=== PATIENT | female | born 1990 | race Caucasian/White ===

== ENCOUNTER 2016-09-30 11:47 | Emergency (ER) | payer OTHER ==
[~2016-09-30] VITALS: Ht 152.4 cm; Wt 71.5 kg
[~2016-09-30 11:47] MED LIST: ACET1TAB40 PO; AZIT250T94 PO; IBUP-1542 PO
[2016-09-30 11:50] VITALS: Ht 152.4 cm; Wt 71.5 kg
[2016-09-30] MEDS ORDERED: KETOROLAC 60 MG INJ IM STA (12:18)
--- NOTE | 2016-09-30 15:21 | RADRPT ---
PROCEDURE: Left breast ultrasound. CLINICAL INDICATION: Left breast pain and tenderness TECHNIQUE: Left whole breast, 4 quadrant and retroareolar, and axillary sonography was performed. COMPARISON: None FINDINGS: No solid or suspicious masses. No areas of architectural distortion. No malignant adenopathy. No dominant cysts are present. Left breast subpectoral implant is present IMPRESSION: No sonographic abnormality identified to correspond to left breast pain. BIRADS 1: Negative examination. . RPTAT: EE .Keyona Weathers MD, Date Time Electronically viewed and signed by .Keyona Weathers MD, on 09/30/2016 15:20 .M/
[2016-09-30] MEDS ORDERED: ULT50 PO (15:31)
--- NOTE | 2016-09-30 15:52 | ERD ---
ER Documentation Chief Complaint Date/Time DATE: 09/30/16 TIME: 15:36 Chief Complaint LEFT BREAST PAIN HPI 25-year-old female presents the ED complaining of left breast pain that started 4 days ago. States that she saw her [facility] ET[facility]ER at [facility] and was sent here to the ED due to her pain. States that she has breast implants from 5 years ago. Describes the pain as sharp and rates it a 10 out of 10. States that she took Motrin without relief and Vicodin provided slight pain relief. Denies any chest pain, shortness of breath, wheezing, abdominal pain, nausea, fever, vomiting. Also reports left ear pain. States that she has recently had a URI but it has resolved. States her last menses was on September 12, 2016. Denies any dysuria, urgency, frequency, flank pain. States that she is not . Denies that she is breast-feeding. ROS All systems reviewed and are negative except as per history of present illness. Medications Home Meds Active Scripts Tramadol HCl (Tramadol HCl) 50 Mg Tablet, 50 MG PO Q4 Y for PAIN, #20 TAB Prov:MARIELA SMITH PA-C 09/30/16 Azithromycin* (Zithromax*) 250 Mg Tablet, 250 MG PO .ZPACK DIRECTED, #6 TAB TAKE 500 MG (2 TABS) THE FIRST DAY THEN 250 MG (1 TAB) DAYS 2-5 Prov:JAZMIN STORY MD 11/19/15 Ibuprofen* (Motrin*) 600 Mg Tab, 600 MG PO Q6, #16 TAB Prov:JAZMIN STORY MD 11/19/15 Acetaminophen-Codeine* (Acetaminophen-Cod #3*) 300-30 Mg Tab, 1 TAB PO Q4H Y for PAIN, #12 TAB Prov:JAZMIN STORY MD 11/19/15 Allergies Allergies: Coded Allergies: No Known Allergy (Verified Allergy, Unknown, 01/11/07) PMhx/Soc History of Surgery: Yes (PLASTIC SURGERY) Anesthesia Reaction: No Hx Neurological Disorder: No Hx Respiratory Disorders: No Hx Cardiac Disorders: No Hx Psychiatric Problems: No Hx Miscellaneous Medical Probl: No Hx Alcohol Use: No Hx Substance Use: No Hx Tobacco Use: No Physical Exam Vitals Vital Signs Date Time Temp Pulse Resp B/P Pulse Ox O2 Delivery O2 Flow Rate FiO2 09/30/16 11:50 98.0 85 19 114/77 100 Physical Exam Const: [id number], well-nourished. In no acute distress. Head: Atraumatic, normocephalic Eyes: Normal Conjunctiva without injection. No purulent discharge. PERRL. EOMI ENT: Normal external ear. Ear canal without erythema. Tympanic membrane pearly newell without effusion or bulging. No tenderness to palpation of the tragus or mastoid. Nasal canal clear with normal turbinates. Moist oropharynx without tonsillar exudates. Non-erythematous pharynx. Uvula midline. No drooling. No trismus. Neck: Full range of motion. No meningismus. No cervical lymphadenopathy. Resp: Clear to auscultation bilaterally. No wheezing, rhonchi, rales, or crackles. No accessory muscle use. No retractions. Cardio: Regular rate and rhythm. No murmurs, rubs or gallops. Breast: Tenderness to palpation of the left breast. No erythema, edema, purulent discharge, fluctuation, induration, warmth to touch. No areolar discharge. Abd: Soft, non tender, non distended. Normal bowel sounds. No palpable masses. No rebound tenderness. No guarding. Skin: No petechiae or rashes Back: No midline tenderness. No CVA tenderness. Ext: No cyanosis, or edema. Neur: Awake and alert. Psych: Normal Mood and Affect Results 24 hrs Current Medications Medications (Trade) Dose Ordered Sig/Sheri Route PRN Reason Start Time Stop Time Status Last Admin Dose Admin Ketorolac Tromethamine (Toradol) 60 mg ONCE STAT IM 09/30/16 12:18 09/30/16 12:20 DC 09/30/16 12:51 Procedures/MDM 38-year-old female with no significant past medical history presents the ED complaining of left breast pain that started 4 days ago. Patient was sent here by her DOT ETCHER for further evaluation of her left breast pain. Patient is afebrile and nontoxic-appearing. At this time and ultrasound of the breasts were ordered to further evaluate patient. Clinically, patient does not appear to have mastitis as there is no warmth to touch, erythema, edema. No purulent discharge or fluctuance noted. There is low suspicion for abscess, deep space infection, sepsis, or other emergent conditions. Differential diagnosis considered include but is not limited to mastitis, fibroadenoma, cyst, fibrocystic changes, galactocele, fat necrosis, malignancy. Low suspicion for sepsis, cellulitis, or other emergent conditions. Patient does not have tenderness to palpation of tragus or mastoid. Low suspicion for otitis media, otitis externa or mastoiditis. Patient's physical exam include lungs which were clear to auscultation and a normal pulse oximetry. Patient is speaking in full sentences. There is a low suspicion for pneumonia, epiglottitis, croup, viral/strep pharyngitis, sinusitis, peritonsillar abscess, retropharyngeal abscess, meningitis, sepsis, acute abdomen or other emergent conditions. Discharge medications: Tramadol Follow up with primary care physician in 1-2 days. Instructed patient to return to the ED sooner for any worsening symptoms. Patient's questions were answered. Patient understood and agreed with discharge plan. Patient discharged stable. Departure Diagnosis: Primary Impression: Breast pain, left Condition: Stable Patient Instructions: Breast Anatomy, Mammography with Breast Implants, Care After Breast Implants Referrals: [facility] YOU HAVE RECEIVED A MEDICAL SCREENING EXAM AND THE RESULTS INDICATE THAT YOU DO NOT HAVE A CONDITION THAT REQUIRES URGENT TREATMENT IN THE EMERGENCY DEPARTMENT. FURTHER EVALUATION AND TREATMENT OF YOUR CONDITION CAN WAIT UNTIL YOU ARE SEEN IN YOUR DOCTORS OFFICE WITHIN THE NEXT 1-2 DAYS. IT IS YOUR RESPONSIBILITY TO MAKE AN APPOINTMENT FOR FOLOW-UP CARE. IF YOU HAVE A PRIMARY DOCTOR --you should call your primary doctor and schedule an appointment IF YOU DO NOT HAVE A PRIMARY DOCTOR YOU CAN CALL OUR PHYSICIAN REFERRAL HOTLINE AT IF YOU CAN NOT AFFORD TO SEE A PHYSICIAN YOU CAN CHOSE FROM THE FOLLOWING [facility] [address] [facility] [address] [facility] [facility] [address] [facility] [address] [facility] [address] [facility]. [facility]. [address] [facility]. [facility] YOU HAVE RECEIVED A MEDICAL SCREENING EXAM AND THE RESULTS INDICATE THAT YOU DO NOT HAVE A CONDITION THAT REQUIRES URGENT TREATMENT IN THE EMERGENCY DEPARTMENT. FURTHER EVALUATION AND TREATMENT OF YOUR CONDITION CAN WAIT UNTIL YOU ARE SEEN IN YOUR DOCTORS OFFICE WITHIN THE NEXT 1-2 DAYS. IT IS YOUR RESPONSIBILITY TO MAKE AN APPOINTMENT FOR FOLOW-UP CARE. IF YOU HAVE A PRIMARY DOCTOR --you should call your primary doctor and schedule and appointment IF YOU DO NOT HAVE A PRIMARY DOCTOR YOU CAN CALL OUR PHYSICIAN REFERRAL HOTLINE AT . IF YOU CAN NOT AFFORD TO SEE A PHYSICIAN YOU CAN CHOSE FROM THE FOLLOWING [facility] INSTITUTIONS: [facility] [address] [place] [address] [facility] [address] [place] [address] [facility] [address] [place] [address] [place] [address] [facility] [address] [place] [address] OFFICE FAX AFSANEH BETT[address]OURT [address] [place] [address] [address] [place] [address] [place] [address] SABINE [address]TG[address] [address] [facility], [address], [facility] [address] [address] [address] [place] [address] [facility] [place] [address] [place] [address] [phone] [facility] [address] [address] [place] [address] [address] RA[address] [address] [facility]. [address], [place] [address] [address] [address] [place] [address] [facility] Hours: 8:00 am - 5:00 pm Additional Instructions: FOLLOW UP WITH YOUR PRIMARY CARE PHYSICIAN TOMORROW.Return to this facility if you are not improving as expected. MARIELA SMITH PA-C Sep 30, 2016 15:50
[2016-09-30 16:00] VITALS: BP 116/56; PULSE 74; RESP 16
== END 2016-09-30 16:24 | disposition home or self-care (01) ==
LOC: FTE 11:47
DX: N64.4 Mastodynia (principal)
CPT/HCPCS: 76642; 96372; J1885; Z7502